=== PATIENT | female | born 1950 | race Caucasian/White ===

== ENCOUNTER 2020-06-05 13:54 | Outpatient (CLI) | payer MEDICARE, SELFPAY ==
--- NOTE | ~2020-06-05 | DEXA_ITS ---
Bone Density Report Name: Annette Schmitz Age: 70 Sex: Female Ethnicity: White Date of : 1950 Indication: osteopenia; height loss; Referring Provider: VERNON BAUTISTA Study: Bone densitometry was performed. Exam Date: June 05, 2020 Accession number: [id number] Bone Density: Region BMD T-score Z-score Classification AP Spine (L1-L4) 0.916 -1.2 0.9 Osteopenia Femoral Neck (Left) 0.733 -1.0 0.8 Normal Total Hip (Left) 0.887 -0.5 1.1 Normal Total Hip Bilateral Avg 0.888 -0.5 1.1 Normal Femoral Neck (Right) 0.694 -1.4 0.4 Osteopenia Total Hip (Right) 0.888 -0.4 1.1 Normal World Health Organization criteria for BMD impression classify patients as: Normal (T-score at or above -1.0), Osteopenia (T-score between -1.0 and -2.5), or Osteoporosis (T-score at or below -2.5). 10-year Fracture Risk(1): Major Osteoporotic Fracture 9.6% Hip Fracture 1.3% Reported Risk Factors: [place] (), Neck BMD=0.694, BMI=28.3 (1) FRAX(R) Version 3.08. Fracture probability calculated for an untreated patient. Fracture probability may be lower if the patient has received treatment. Previous Exams: Region Exam Age BMD T-score BMD Change BMD Change Date g/cm2 vs Baseline vs Previous AP Spine(L1-L4) 06/05/2020 70 0.916 -1.2 0.012(1.3%) 0.005(0.6%) 12/31/2016 66 0.911 -1.2 0.007(0.8%) 0.007(0.8%) 08/16/2014 64 0.904 -1.3 Total Hip(Left) 06/05/2020 70 0.887 -0.5 -0.044(-4.7%)* 0.002(0.3%) 12/31/2016 66 0.884 -0.5 -0.046(-5.0%)* -0.046(-5.0%)* 08/16/2014 64 0.930 -0.1 Total Hip(Right) 06/05/2020 70 0.888 -0.4 -0.043(-4.6%)* -0.018(-2.0%) 12/31/2016 66 0.906 -0.3 -0.026(-2.7%) -0.026(-2.7%) 08/16/2014 64 0.932 -0.1 *Denotes significance at 95% confidence level, LSC for AP Spine = 0.022 g/cm2, LSC for Total Hip = 0.027 g/cm2 Clinical Information Provided by Patient: Has used the following medications: Vitamin D Patient maximum height was 62.5 Menopause Age: 50 Does not regularly consume dairy products Drinks caffeinated beverages Onset of menses at age 12 Number of children 2 Impression: The patient has low bone mass, based on the Right Femoral Neck T-score. The patient has an estimated ten-year risk of hip fracture of 1.3% and an estimated ten-year risk of major fracture of 9.6%, based on the WHO FRAX algorithm. No significant bone loss was observed. Discussion: BONE DENSITY IS LO
== END 2020-06-05 13:55 | disposition home or self-care (01) ==
LOC: ANHIMG 13:57
PROVIDERS: PCP Family Medicine; Visit Provider Physician Assistant
DX: M85.851 Other specified disorders of bone density and structure, right thigh (principal); M85.88 Other specified disorders of bone density and structure, other site
CPT/HCPCS: 77080

== ENCOUNTER 2021-05-03 07:40 | Outpatient (CLI) | payer MEDICARE, SELFPAY ==
--- NOTE | ~2021-05-03 | MM_ITS ---
EXAMINATION: MM screening fausto BI w amanda HISTORY: Screening TECHNIQUE: Craniocaudal and mediolateral oblique 3-D tomosynthesis images were obtained and synthetic 2-D images were generated. CAD analysis was submitted and interpreted. COMPARISON: Comparison to multiple prior studies sequentially, with oldest reviewed study dated 04/19. BREAST PARENCHYMAL COMPOSITION: There are scattered areas of fibroglandular density. FINDINGS: There are extensive bilateral benign bilateral secretory calcifications. There are small de veloping masses in the lower inner quadrant of the right breast. The left breast is stable without ev idence for malignancy. IMPRESSION: 1. Small developing right breast masses, lower inner quadrant. 2. Additional mammographic views and possible breast ultrasound are recommended. BI-RADS Category 0: Incomplete: Needs additional imaging evaluation. Reviewed, dictated and finalized at location A. IMPRESSION: 1. Small developing right breast masses, lower inner quadrant. 2. Additional mammographic views and possible breast ultrasound are recommended . BI-RADS Category 0: Incomplete: Needs additional imaging evaluation.
== END 2021-05-03 07:41 | disposition home or self-care (01) ==
LOC: ANHIMG 07:43
PROVIDERS: PCP Family Medicine; Visit Provider Family Medicine
DX: Z12.31 Encounter for screening mammogram for malignant neoplasm of breast (principal); R92.8 Other abnormal and inconclusive findings on diagnostic imaging of breast
CPT/HCPCS: 77063; 77067

== ENCOUNTER 2021-05-30 12:53 | Outpatient (CLI) | payer MEDICARE, SELFPAY ==
--- NOTE | ~2021-05-30 | MMUS_ITS ---
EXAMINATION: MM diagnostic fausto RT w amanda, US breast RT limited HISTORY: Follow-up right breast asymmetries TECHNIQUE: Additional 3-D tomosynthesis images of the right breast were performed and synthetic 2-D i mages were generated. CAD analysis was submitted and interpreted. High resolution Limited right breas t ultrasound was performed. COMPARISON: Comparison to multiple prior studies sequentially, with oldest reviewed study dated 11/2018. BREAST PARENCHYMAL COMPOSITION: Breast composed of scattered areas of fibroglandular density. FINDINGS: MAMMOGRAPHIC FINDINGS: There are extensive benign secretory calcifications. There are nodular densities predominantly center ed in the lower inner quadrant of the right breast which are new compared with prior study. ULTRASOUND: Limited right breast ultrasound: There are multiple cysts of the right breast including a cluster of microcysts at 3:00, 3 cm from the nipple. No suspicious masses to suggest malignancy. IMPRESSION: 1. No evidence for malignancy in the right breast. Benign findings. 2. Routine yearly screening mammogram and regular clinical breast examination are recommended. BI-RADS Category 2: Benign finding(s). Reviewed, dictated and finalized at location A. IMPRESSION: 1. No evidence for malignancy in the right breast. Benign findings. 2. Routine yearly screening mammogram and regular clinical breast examination a re recommended. BI-RADS Category 2: Benign finding(s).
== END 2021-05-30 12:54 | disposition home or self-care (01) ==
PROVIDERS: PCP Family Medicine; Visit Provider Physician Assistant
DX: N63.10 Unspecified lump in the right breast, unspecified quadrant (principal); N60.01 Solitary cyst of right breast
CPT/HCPCS: 76642; 77061; 77065; G0279

== ENCOUNTER 2021-06-11 01:00 | Day surgery (SDC) | payer MEDICARE, SELFPAY ==
[2021-05-31 13:11] VITALS: BMI 26.2
[2021-06-11 06:44] VITALS: BP 149/72; PULSE 90; RESP 18; TEMP 36.8; O2SAT 97
[2021-06-11] MEDS: LACTATED RINGERS 1,000 ML 150 ML IV CONT (06:49)
[2021-06-11 06:55] LABS: Glucose Point of Care 158 mg/dl (65-105)
--- NOTE | 2021-06-11 07:23 | WPDANESEPPF ---
Anes - Initial Pre Proc Eval Procedure: Operation Date: 06/11/21 08:00 Proposed Procedures p Esophagogastroduodenoscopy - Collins Scherer MD Date/Time: 06/11/21 07:23 Surgeon: Collins Scherer MD Pre Op Diagnosis: GERD Patient Data Age: 71 Gender: F Height: 1.6 m Weight: 67 kg Last Vital Signs Temp 98.2 F 06/11/21 06:44 Pulse 90 06/11/21 06:44 Resp 18 06/11/21 06:44 BP 149/72 H 06/11/21 06:44 Pulse Ox 97 06/11/21 06:44 Allergies Allergy/AdvReac Type Severity Reaction Status Date / Time morphine Allergy Severe Confusion Verified 06/11/21 06:43 Home Medications Medication Instructions Recorded Confirmed Type cholecalciferol (vitamin D3) 50 2,000 unit PO DAILY 08/23/19 06/11/21 History mcg (2,000 unit) tablet meclizine 12.5 mg tablet 12.5 mg PO BID 08/23/19 06/11/21 History esomeprazole magnesium 40 mg 40 mg PO QAM #90 cap 09/05/20 06/11/21 Rx capsule,delayed release fenofibrate micronized 130 mg See Rx Instructions .ROUTE 11/01/20 06/11/21 Rx capsule .COMPLEX #90 each pravastatin 20 mg tablet See Rx Instructions .ROUTE 11/01/20 06/11/21 Rx .COMPLEX #90 each dulaglutide 1.5 mg/0.5 mL 1.5 mg SUB-Q WEEKLY #2 ml 02/19/21 06/11/21 Rx subcutaneous pen injector losartan 100 1 tablet PO DAILY #90 tablet 04/16/21 06/11/21 Rx mg-hydrochlorothiazide 12.5 mg tablet Laboratory Tests 06/11/21 06:48 POC Capillary Glucose 158 mg/dl H mg/dl (65-105) Patient hx anesthesia problems: none Family hx anesthesia problems: none PMFSH Past Medical History Medical History (Updated 06/11/21 @ 07:23 by Alvaro Guevara MD) Essential hypertension GERD without esophagitis Hypercholesterolemia Type 2 diabetes mellitus without complication, without long-term current use of insulin Social History Social History (Updated 05/17/21 @ 10:35 by Destiny Huber) Smoking status: Never smoker Second hand tobacco smoke exposure: No Alcohol intake: current Drinks per week: 1 Alcohol use details: socially Substance use: never Substance use type: does not use Living arrangements: with family Additional living arrangements comments: lives with spouse Gender identity (if verbalized by the patient): Female Sexual Orientation (if Verbalized by the Patient): Straight or Heterosexual Spiritual care concerns: No Anes - Eval Final PreProcedure Day of Procedure 06/11/21 07:23 Patient weight: normal Heart: regular rate and rhythm Lungs: clear to auscultation Airway: Mallampati scale class II Neurological: alert and oriented Last oral intake: >/= 8 hours ASA classification: III Emergent: no Anesthetic plan: proceed Anesthesia type and monitoring: general GIVS and standard monitoring Informed Consent: The patient's anesthetic plan and its attendant risks and benefits were discussed with the patient/family/POA. Questions were solicited and answers provided to the satisfaction of the patient/family/POA.
--- NOTE | 2021-06-11 07:50 | PM.HPGS ---
History of Present Illness History of Present Illness Consent: Risks, benefits, and alternatives have been discussed and questions answered. Patient agrees to proceed with procedure. Chief complaint: GERD Narrative: Annette Schmitz is a 71 year old female with gerd for years on ppi but sometimes breakthrough symptoms, never had egd Review of Systems Constitutional: Constitutional: Denies headache(s) and Denies weakness Eyes: Eyes: Denies blurry vision ENT: Reports Normal hearing present, Denies headache(s) and Denies neck pain Cardiovascular: Cardiovascular: Denies chest pain and Denies dyspnea Respiratory: Respiratory: Denies dyspnea Gastrointestinal: Gastrointestinal: Reports no additional gastrointestinal complaints Genitourinary: Genitourinary: Denies dysuria Musculoskeletal: Musculoskeletal: Denies neck pain Integumentary/Breasts: Skin/Breast: Denies dry skin Neurologic: Reports Normal hearing present, Denies headache(s) and Denies weakness Psychiatric: Psychiatric: Denies anxiety Endocrine: Endocrine: Denies change in body appearance Hematologic/Lymphatic: Hematologic/Lymphatic: Denies easy bleeding Allergic/Immunologic: Allergic/Immunologic: Denies urticaria PMFSH Past Medical History Medical History (Updated 06/11/21 @ 07:50 by Collins Scherer MD) Essential hypertension GERD without esophagitis Hypercholesterolemia Type 2 diabetes mellitus without complication, without long-term current use of insulin Social History Social History (Updated 05/17/21 @ 10:35 by Destiny Huber) Smoking status: Never smoker Second hand tobacco smoke exposure: No Alcohol intake: current Drinks per week: 1 Alcohol use details: socially Substance use: never Substance use type: does not use Living arrangements: with family Additional living arrangements comments: lives with spouse Gender identity (if verbalized by the patient): Female Sexual Orientation (if Verbalized by the Patient): Straight or Heterosexual Spiritual care concerns: No Meds Home Medications and Allergies Home Medications Medication Instructions Recorded Confirmed Type cholecalciferol (vitamin D3) 50 2,000 unit PO DAILY 08/23/19 06/11/21 History mcg (2,000 unit) tablet meclizine 12.5 mg tablet 12.5 mg PO BID 08/23/19 06/11/21 History esomeprazole magnesium 40 mg 40 mg PO QAM #90 cap 09/05/20 06/11/21 Rx capsule,delayed release fenofibrate micronized 130 mg See Rx Instructions .ROUTE 11/01/20 06/11/21 Rx capsule .COMPLEX #90 each pravastatin 20 mg tablet See Rx Instructions .ROUTE 11/01/20 06/11/21 Rx .COMPLEX #90 each dulaglutide 1.5 mg/0.5 mL 1.5 mg SUB-Q WEEKLY #2 ml 02/19/21 06/11/21 Rx subcutaneous pen injector losartan 100 1 tablet PO DAILY #90 tablet 04/16/21 06/11/21 Rx mg-hydrochlorothiazide 12.5 mg tablet Allergies Allergy/AdvReac Type Severity Reaction Status Date / Time morphine Allergy Severe Confusion Verified 06/11/21 06:43 Vital Signs Vital Signs - 24 hr 06/11/21 06:44 Temperature 98.2 F Pulse Rate 90 Respiratory Rate 18 Blood Pressure 149/72 H Pulse Oximetry 97 Exam Const: General: comfortable and no acute distress HENMT: General nose exam: Normal nares present Eyes: General: appearance normal, both eyes and all related structures Neck: Neck: no JVD Resp: Auscultation: clear to auscultation bilaterally Cardio: Rate: regular rate Rhythm: regular rhythm GI: Inspection: non-distended GI Palp: Yes Soft to palpation Skin: General skin exam: normal color Neuro: General: gait normal Speech: normal speech Extrem: General: normal to inspection Psych: Mental Status: mental status grossly normal Assessment and Plan Assessment and plan (1) GERD without esophagitis: Code(s): K21.9 - Gastro-esophageal reflux disease without esophagitis Status: Acute Assessment and Plan: egd with bx already o
[2021-06-11 08:03] VITALS: BP 99/54; PULSE 84; RESP 24; O2SAT 96
[2021-06-11 08:13] VITALS: BP 115/64; PULSE 80; RESP 20; O2SAT 95
[2021-06-11 08:23] VITALS: BP 129/68; PULSE 81; RESP 14; O2SAT 98
== END 2021-06-11 08:36 | disposition home or self-care (01) ==
PROVIDERS: PCP Family Medicine; Visit Provider Internal Medicine Gastroenterology
PROC: 0DJ08ZZ Inspection of Upper Intestinal Tract, Via Natural or Artificial Opening Endoscopic (ICD-10-PCS; CPT 43235; principal; 2021-06-11 08:00)
DX: K21.00 Gastro-esophageal reflux disease with esophagitis, without bleeding (principal); K44.9 Diaphragmatic hernia without obstruction or gangrene; K29.70 Gastritis, unspecified, without bleeding; I10 Essential (primary) hypertension; E11.9 Type 2 diabetes mellitus without complications; E78.00 Pure hypercholesterolemia, unspecified
CPT/HCPCS: 43239; 82948; 88305; J2704; J7120

== ENCOUNTER 2021-12-12 08:00 | Outpatient (CLI) | payer MEDICARE, SELFPAY ==
--- NOTE | ~2021-12-12 | US_ITS ---
EXAMINATION: US abdomen complete DATE: 12/12/2021 09:02 INDICATION: Other secondary thrombocytopenia. TECHNIQUE: Multiple grayscale and Doppler ultrasound images of the abdomen were obtained. COMPARISON: Abdomen ultrasound 09/27/2016 FINDINGS: Abdominal aorta is normal in caliber. The visualized portions of the head, body, and tail o f the pancreas are normal. Inferior vena cava is normal. There is diffuse hepatic steatosis. The gall bladder is normal in size and contains gallstones. No gallbladder wall thickening. There was no sonog raphic Marlow sign. The common duct is normal and measures 4 mm. The kidneys are normal in size. Ther e is a 6 mm cyst in left kidney. There is mild splenomegaly measuring 13.9 cm. IMPRESSION: 1. Mild splenomegaly. 2. Diffuse hepatic steatosis. 3. Cholelithiasis. No evidence of acute cholecystitis. Reviewed, dictated and finalized at location A.
== END 2021-12-12 08:01 | disposition home or self-care (01) ==
LOC: ANHIMG 08:05
PROVIDERS: PCP Family Medicine; Visit Provider Internal Medicine Hematology & Oncology
DX: D69.59 Other secondary thrombocytopenia (principal); K76.0 Fatty (change of) liver, not elsewhere classified; K80.20 Calculus of gallbladder without cholecystitis without obstruction; R16.1 Splenomegaly, not elsewhere classified
CPT/HCPCS: 76700

== ENCOUNTER → 2022-01-31 02:12 | Outpatient (CLI) | payer MEDICARE, SELFPAY ==
[2022-01-31 15:55] LABS: SARS-CoV-2 RNA PCR Positive
== END ==
PROVIDERS: PCP Family Medicine; Visit Provider Family Medicine
DX: U07.1 COVID-19 (principal)
CPT/HCPCS: C9803; U0003; U0005

== ENCOUNTER 2022-03-01 18:48 | Emergency (ER) | payer MEDICARE, SELFPAY ==
--- NOTE | ~2022-03-01 | XR_ITS ---
EXAMINATION: XR chest 2V Exam Date/Time: 03/01/2022 19:37 CDT HISTORY: ongoing cough Comparison: 05/25/2012. RESULT: Lines, tubes, and devices: None. Lungs and pleura: Clear. Cardiomediastinal silhouette: Stable cardiomediastinal silhouette. Other: No acute osseous or upper abdominal finding. IMPRESSION: No acute cardiopulmonary process. Reviewed, dictated and finalized at location K.
[2022-03-01 18:49] VITALS: BP 114/95; PULSE 98; RESP 20; TEMP 36.2; O2SAT 98
--- NOTE | 2022-03-01 19:29 | ED.EAR ---
HPI - Ear Problem General Chief complaint: Ear Stated complaint: Cough, Ear pain Time Seen by Provider: 03/01/22 19:08 Source: patient Mode of arrival: ambulatory Limitations: no limitations History of Present Illness HPI Narrative: This is a 72-year-old female that presents to the emergency department for otalgia noted today. Reports over the last week she has had congestion and a dry cough. Today she noted that her right ear was hurting. Denies fever, drainage, or shortness of breath. Related Data Home Medications Medication Instructions Recorded Confirmed cholecalciferol (vitamin D3) 50 2,000 unit PO DAILY 08/23/19 01/14/22 mcg (2,000 unit) tablet meclizine 12.5 mg tablet 12.5 mg PO BID 08/23/19 01/14/22 Allergies Allergy/AdvReac Type Severity Reaction Status Date / Time morphine Allergy Severe Confusion Verified 03/01/22 19:33 Review of Systems Review of Systems: CONSTITUTIONAL: Denies fever, ENT: Reports otalgia. CARDIOVASCULAR: Denies chest pain RESPIRATORY: Reports cough. Denies dyspnea. All systems reviewed & are unremarkable except as noted in HPI and below PMFSH Past Medical History Medical History Essential hypertension GERD without esophagitis Hypercholesterolemia Type 2 diabetes mellitus without complication, without long-term current use of insulin Social History Social History Second hand tobacco smoke exposure: No Alcohol intake: current Drinks per week: 1 Alcohol use details: socially Substance use: never Substance use type: does not use Additional living arrangements comments: lives with spouse Gender identity (if verbalized by the patient): Female Sexual Orientation (if Verbalized by the Patient): Straight or Heterosexual Spiritual care concerns: No Exam Narrative: GENERAL: Well-appearing, well-nourished, and in no acute distress. HEAD: Normocephalic, atraumatic. EYES: EOMI. ENT: Nares clear, no rhinorrhea or epistaxis. Mucous membranes moist. Oropharynx without tonsillar hypertrophy exudate or other lesions. Left TM pearly najera non-bulging. Right TM is bulging and erythematous NECK: Supple. No adenopathy or masses. CHEST: Clear to auscultation. No respiratory distress. No wheezes rales or rhonchi HEART: Regular rate and rhythm. No murmur heard. Normal peripheral pulses. EXTREMITIES: Normal range of motion. No edema. SKIN: Warm, dry, no rash. NEURO: No focal deficits. Alert and oriented x3. PSYCH: Normal mood and affect Course Vital Signs Vital signs: Vital Signs Temperature 97.2 F L 03/01/22 18:49 Pulse Rate 98 03/01/22 18:49 Respiratory Rate 20 03/01/22 18:49 Blood Pressure 114/95 H 03/01/22 18:49 Pulse Oximetry 98 03/01/22 18:49 Temperature 97.2 F L 03/01/22 18:49 Pulse Rate 98 03/01/22 18:49 Respiratory Rate 20 03/01/22 18:49 Blood Pressure 114/95 H 03/01/22 18:49 Pulse Oximetry 98 03/01/22 18:49 Medical Decision Making MDM Narrative Medical decision making narrative: Patient presents to the emergency department for ear pain today after a recent upper respiratory infection. Patient is afebrile and nontoxic-appearing. Oxygen saturation is normal on room air. Lungs are clear on exam. Chest x-ray without acute cardiopulmonary abnormality. Right ear exam is consistent with otitis media. Patient will be started on oral antibiotics. She is to follow-up with her primary care doctor. She was given warnings to return to ER Vital Signs Vital Signs: Vital Signs Temperature 97.2 F L 03/01/22 18:49 Pulse Rate 98 03/01/22 18:49 Respiratory Rate 20 03/01/22 18:49 Blood Pressure 114/95 H 03/01/22 18:49 Pulse Oximetry 98 03/01/22 18:49 Temperature 97.2 F L 03/01/22 18:49 Pulse Rate 98 03/01/22 18:49 Respiratory Rate 20 03/01/22 18:49 Blood Pressure 114/95 H 03/01/22 18:49 Pul
--- NOTE | 2022-03-01 19:39 | PC.NURSE ---
Patient taken to xray via w/c.
[2022-03-01 20:45] VITALS: BP 106/54; PULSE 99; RESP 20; TEMP 37.5; O2SAT 97
[2022-03-01] MEDS: AMOXICILLIN 500 MG CAPSULE PO (20:54)
== END 2022-03-01 20:58 | disposition home or self-care (01) ==
PROVIDERS: Emergency Provider Emergency Medicine; PCP Family Medicine
DX: H66.91 Otitis media, unspecified, right ear (principal); I10 Essential (primary) hypertension; E78.00 Pure hypercholesterolemia, unspecified; E11.9 Type 2 diabetes mellitus without complications; K21.9 Gastro-esophageal reflux disease without esophagitis; Z79.899 Other long term (current) drug therapy
CPT/HCPCS: 71046; 99283; A9270

== ENCOUNTER 2022-08-29 08:51 | Outpatient (CLI) | payer MEDICARE, SELFPAY ==
--- NOTE | ~2022-08-29 | MM_ITS ---
EXAMINATION: MM screening fausto BI w amanda HISTORY: Screening mammogram TECHNIQUE: Craniocaudal and mediolateral oblique 3-D tomosynthesis images were obtained and synthetic 2-D images were generated. CAD analysis was submitted and interpreted. COMPARISON: 05/30/2021, 05/03/2021, 04/13/2018 BREAST PARENCHYMAL COMPOSITION: There are scattered areas of fibroglandular density. FINDINGS: Scattered benign-appearing calcifications are present. No suspicious mass, calcification, o r architectural distortion are identified in either breast to suggest malignancy. There has been no s uspicious interval change. IMPRESSION: 1. No mammographic evidence of malignancy. 2. Recommend routine screening mammography in one year. BI-RADS Category 2: Benign finding(s). Reviewed, dictated and finalized at location A. WASHER
== END 2022-08-29 08:52 | disposition home or self-care (01) ==
LOC: ANHIMG 08:52
PROVIDERS: PCP Family Medicine; Visit Provider Physician Assistant
DX: Z12.31 Encounter for screening mammogram for malignant neoplasm of breast (principal)
CPT/HCPCS: 77063; 77067

== ENCOUNTER 2022-11-12 00:59 | Day surgery (SDC) | payer MEDICARE, SELFPAY ==
[2022-10-29 12:12] VITALS: BMI 26.6
[2022-11-12 06:47] VITALS: BP 145/62; PULSE 83; RESP 16; TEMP 36.2; O2SAT 99
[2022-11-12] MEDS: LACTATED RINGERS 1,000 ML 150 ML IV CONT (06:59)
[2022-11-12 07:02] LABS: Glucose Point of Care 119 mg/dl (65-105)
--- NOTE | 2022-11-12 07:51 | PM.HPGS ---
History of Present Illness History of Present Illness Consent: Risks, benefits, and alternatives have been discussed and questions answered. Patient agrees to proceed with procedure. Chief complaint: neoplasm screening, hemorrhoids Narrative: Annette Schmitz is a 72 year old female with last colonoscopy 2017 had polyps and also history of hemorrhoids Review of Systems Constitutional: Constitutional: Denies headache(s) and Denies weakness Eyes: Eyes: Denies blurry vision ENT: Reports Normal hearing present, Denies headache(s) and Denies neck pain Cardiovascular: Cardiovascular: Denies chest pain and Denies dyspnea Respiratory: Respiratory: Denies dyspnea Gastrointestinal: Gastrointestinal: Reports no additional gastrointestinal complaints Genitourinary: Genitourinary: Denies dysuria Musculoskeletal: Musculoskeletal: Denies neck pain Integumentary/Breasts: Skin/Breast: Denies dry skin Neurologic: Reports Normal hearing present, Denies headache(s) and Denies weakness Psychiatric: Psychiatric: Denies anxiety Endocrine: Endocrine: Denies change in body appearance Hematologic/Lymphatic: Hematologic/Lymphatic: Denies easy bleeding Allergic/Immunologic: Allergic/Immunologic: Denies urticaria PMFSH Past Medical History Medical History (Updated 11/12/22 @ 07:52 by Collins Scherer MD) Adenomatous colon polyp Essential hypertension GERD without esophagitis Hemorrhoid Hypercholesterolemia Type 2 diabetes mellitus without complication, without long-term current use of insulin Social History Social History Smoking status: Former smoker Second hand tobacco smoke exposure: No Alcohol intake: current Drinks per week: 2 Alcohol use details: socially Substance use: never Substance use type: does not use Living arrangements: with family Additional living arrangements comments: lives with spouse Occupation/Education: retired Gender identity (if verbalized by the patient): Female Sexual Orientation (if Verbalized by the Patient): Straight or Heterosexual Spiritual care concerns: No Meds Home Medications and Allergies Home Medications Medication Instructions Recorded Confirmed Type cholecalciferol (vitamin D3) 50 2,000 unit PO DAILY 08/23/19 11/12/22 History mcg (2,000 unit) tablet meclizine 12.5 mg tablet 12.5 mg PO BID PRN Vertigo 08/23/19 11/12/22 History losartan 100 1 tablet PO DAILY #90 tabs 07/30/22 11/12/22 Rx mg-hydrochlorothiazide 12.5 mg tablet fenofibrate micronized 130 mg 130 mg PO DAILY 10/29/22 11/12/22 History capsule pravastatin 20 mg tablet 20 mg PO DAILY 10/29/22 11/12/22 History dulaglutide 1.5 mg/0.5 mL 1.5 mg (0.5 mL) subcut WEEKLY #2 mL 11/10/22 11/12/22 Rx subcutaneous pen injector (Trulicity) Allergies Allergy/AdvReac Type Severity Reaction Status Date / Time morphine Allergy Severe Confusion Verified 11/12/22 06:44 Vital Signs Vital Signs - 24 hr 11/12/22 06:47 Temperature 97.1 F L Pulse Rate 83 Respiratory Rate 16 Blood Pressure 145/62 H Pulse Oximetry 99 Oxygen Delivery Room Air Exam Const: General: comfortable and no acute distress HENMT: Face/Nose/Sinus: Normal nares present Eyes: General: appearance normal, both eyes and all related structures Neck: Neck: no JVD Resp: Auscultation: clear to auscultation bilaterally Cardio: Rate: regular rate Rhythm: regular rhythm GI: Inspection: non-distended GI Palp: Yes Soft to palpation Skin: General skin exam: normal color Neuro: General: gait normal Speech: normal speech Extrem: General: normal to inspection Psych: Mental Status: mental status grossly normal Assessment and Plan Assessment and plan (1) Adenomatous colon polyp: Code(s): D12.6 - Benign neoplasm of colon, unspecified Status: Acute Assessment and Plan: colonoscopy (2) Hemorrhoid: Code(s
[2022-11-12 08:10] VITALS: BP 94/57; PULSE 92; RESP 21; O2SAT 96
--- NOTE | 2022-11-12 08:11 | W.PM.PROC2 ---
Procedure Note - Detailed Date of Procedure 11/12/22 Pre-op Diagnosis hemorrhoids Post-op Diagnosis Same Procedure Performed IRC of internal hemorrhoids Surgeon Collins Scherer MD Anesthesia MAC (patient already had anesthesia because of colonoscopy) Description of Procedure found grade II internal hemorrhoids with anoscope, no fissure, no lesions. Then advanced IRC probe and hemorrhoids treated at 1.5 seconds x6
--- NOTE | 2022-11-12 08:11 | WPDANESEPPF ---
Anes - Initial Pre Proc Eval Procedure: Operation Date: 11/12/22 08:00 Proposed Procedures p Screening Colonoscopy - Collins Scherer MD s [facility] Hemorrhoid Treatment - Collins Scherer MD Date/Time: 11/12/22 08:11 Surgeon: Collins Scherer MD Pre Op Diagnosis: neoplasm screening, hemorrhoids Patient Data Age: 72 Gender: F Height: 1.57 m Weight: 61.4 kg Last Vital Signs Temp 97.1 F L 11/12/22 06:47 Pulse 83 11/12/22 06:47 Resp 16 11/12/22 06:47 BP 145/62 H 11/12/22 06:47 Pulse Ox 99 11/12/22 06:47 O2 Del Method Room Air 11/12/22 06:47 Allergies Allergy/AdvReac Type Severity Reaction Status Date / Time morphine Allergy Severe Confusion Verified 11/12/22 06:44 Home Medications Medication Instructions Recorded Confirmed Type cholecalciferol (vitamin D3) 50 2,000 unit PO DAILY 08/23/19 11/12/22 History mcg (2,000 unit) tablet meclizine 12.5 mg tablet 12.5 mg PO BID PRN Vertigo 08/23/19 11/12/22 History losartan 100 1 tablet PO DAILY #90 tabs 07/30/22 11/12/22 Rx mg-hydrochlorothiazide 12.5 mg tablet fenofibrate micronized 130 mg 130 mg PO DAILY 10/29/22 11/12/22 History capsule pravastatin 20 mg tablet 20 mg PO DAILY 10/29/22 11/12/22 History dulaglutide 1.5 mg/0.5 mL 1.5 mg (0.5 mL) subcut WEEKLY #2 mL 11/10/22 11/12/22 Rx subcutaneous pen injector (Trulicity) Laboratory Tests 11/12/22 06:57 POC Capillary Glucose 119 mg/dl H mg/dl (65-105) Patient hx anesthesia problems: none Family hx anesthesia problems: none Results Review: All pre-operative results and documents have been reviewed as part of the pre-operative evaluation. [facility] Past Medical History Medical History (Updated 11/12/22 @ 07:52 by Collins Scherer MD) Adenomatous colon polyp Essential hypertension GERD without esophagitis Hemorrhoid Hypercholesterolemia Type 2 diabetes mellitus without complication, without long-term current use of insulin Social History Social History Smoking status: Former smoker Second hand tobacco smoke exposure: No Alcohol intake: current Drinks per week: 2 Alcohol use details: socially Substance use: never Substance use type: does not use Living arrangements: with family Additional living arrangements comments: lives with spouse Occupation/Education: retired Gender identity (if verbalized by the patient): Female Sexual Orientation (if Verbalized by the Patient): Straight or Heterosexual Spiritual care concerns: No Anes - Eval Final PreProcedure Day of Procedure 11/12/22 08:11 Patient weight: normal Heart: regular rate and rhythm Lungs: clear to auscultation Airway: Mallampati scale class II Neurological: alert and oriented Last oral intake: >/= 8 hours ASA classification: III Emergent: no Anesthetic plan: proceed Anesthesia type and monitoring: general GIVS and standard monitoring Results Review: All pre-operative results and documents have been reviewed as part of the pre-operative evaluation. Informed Consent: The patient's anesthetic plan and its attendant risks and benefits were discussed with the patient/family/POA. Questions were solicited and answers provided to the satisfaction of the patient/family/POA.
[2022-11-12 08:20] VITALS: BP 91/50; PULSE 87; RESP 15; O2SAT 94
[2022-11-12 08:30] VITALS: BP 109/60; PULSE 80; RESP 18; O2SAT 97
== END 2022-11-12 08:40 | disposition home or self-care (01) ==
PROVIDERS: PCP Family Medicine; Visit Provider Internal Medicine Gastroenterology
PROC: 0DJD8ZZ Inspection of Lower Intestinal Tract, Via Natural or Artificial Opening Endoscopic (ICD-10-PCS; CPT 45378; principal; 2022-11-12 08:00)
PROC: (CPT 46930; 2022-11-12 08:00)
DX: Z12.11 Encounter for screening for malignant neoplasm of colon (principal); D12.4 Benign neoplasm of descending colon; K63.5 Polyp of colon; K64.1 Second degree hemorrhoids; K57.30 Diverticulosis of large intestine without perforation or abscess without bleeding; I10 Essential (primary) hypertension; E11.9 Type 2 diabetes mellitus without complications; E78.00 Pure hypercholesterolemia, unspecified; K21.9 Gastro-esophageal reflux disease without esophagitis; Z79.899 Other long term (current) drug therapy; Z87.891 Personal history of nicotine dependence
CPT/HCPCS: 46930; 45385; 82948; 88305; J2704; J7120

== ENCOUNTER 2023-07-07 09:38 | Outpatient (CLI) | payer MEDICARE, SELFPAY ==
--- NOTE | 2023-07-23 21:32 | WPDSLEEPSTUD ---
Sleep Study Date of Study: 07/07/23 Ordering Provider: Sanjeev Ku DDS, [facility] Val[facility] MD Interpreting Physician: Anais Valderrama MD Sleep Study Type: Polysomnogram Height: 1.6 m Weight: 58.967 kg Body Mass Index: 23.0 Neck Circumference (inches): 13 [place]: 11 Reason for Sleep Study Hypersomnolence, known TRUMAN; she is having a polysomnogram with titration of an oral device * 12/20/08 split night =? AHI 36.9 desaturation to 83%; severe TRUMAN; she had a BMI 27.4 / 150 lb at the time, same as now. Sleep History Annette Schmitz is a 73-year-old woman with obstructive sleep apnea, here for a titration using the AYAZ oral device. She was referred to me by her dentist, Dr Ku. She did not tolerate CPAP in the past, is using an AYAZ oral device since September 2022. Using this device, she never awakens from sleep short of breath. She frequently wakes at night with heartburn, belching or coughing.??She frequently snores, occasionally snores loudly enough that others complain, but not when using the oral device. She occasionally has trouble sleeping when she has a cold. She never wakes up gasping for breath during the night. She never has breathing problems at night observed by others. She never sweats excessively at night. She occasionally notices her heart pounding or beating irregularly during the night. She occasionally falls asleep during the day. She never falls asleep involuntarily, never falls asleep while driving. She rarely experiences loss of muscle tone with strong emotion. She never feels paralyzed on waking or falling asleep. She occasionally experiences vivid dreams upon waking or falling asleep. She never feels afraid of going to sleep. She rarely has nightmares. She occasionally recalls her dreams. She frequently has thoughts racing through her mind. She occasionally feels sad or depressed. She frequently feels anxiety. She never notices parts of her body jerk. She never kicks during the night. She occasionally feels crawling or aching feelings in her legs. She occasionally feels leg pain at night. She rarely has morning jaw pain, and rarely grinds her teeth at night. She rarely feels bothered by pain during the day, rarely awakened by pain during the night. She never wakes up feeling stiff in the morning, rarely wakes feeling sore or achy in the morning. She rarely awakens with pain in her neck, spine, or joints. Normal bedtime is between 11:00 p.m. and 12:00 midnight, falling asleep within 30-40 minutes. She wakes up once or twice during the night, most nights does not wake at all. If she wakes at night, she thinks about what she will do the next day when she wakes at night. She reports getting 6-7 hours of sleep per night. Her wake time is 7:30 a.m.. She occasionally takes naps, and a short nap may be refreshing. She feels refreshed on waking. Habits:??Tobacco:never Caffeine:1 cup of coffee a day, Coke or tea with meals. Alcohol:once a week, a social drink Recreational substances: none PMFSH Past Medical History Medical History Adenomatous colon polyp Essential hypertension GERD without esophagitis Hemorrhoid Hypercholesterolemia Obstructive sleep apnea Type 2 diabetes mellitus without complication, without long-term current use of insulin Social History Social History Smoking status: Former smoker Second hand tobacco smoke exposure: No Alcohol intake: current Drinks per week: 2 Alcohol use details: socially Substance use: never Substance use type: does not use Living arrangements: with family Additional living arrangements comments: lives with spouse Occupation/Education: retired Gender identity (if verbalized by the patient): Female Sexual Orientation (if Verbalized by the Patient): Straight or Heterosexual Spiritual care concerns: No Medications Jose
[2023-07-23 22:52] VITALS: BMI 23.0
== END 2023-07-08 07:47 | disposition home or self-care (01) ==
LOC: ANHCSM 09:39
PROVIDERS: PCP Family Medicine; Visit Provider Internal Medicine Critical Care Medicine
DX: G47.33 Obstructive sleep apnea (adult) (pediatric) (principal)
CPT/HCPCS: 95810

== ENCOUNTER → 2023-10-22 10:17 | Outpatient (CLI) | payer MEDICARE, SELFPAY ==
--- NOTE | ~2023-10-22 | MM_ITS ---
EXAMINATION: MM screening fausto BI w amanda HISTORY: Screening mammogram TECHNIQUE: Craniocaudal and mediolateral oblique 3-D tomosynthesis images were obtained and synthetic 2-D images were generated. CAD analysis was submitted and interpreted. COMPARISON: 08/29/2022, 05/30/2021, at 621 BREAST PARENCHYMAL COMPOSITION: There are scattered areas of fibroglandular density. FINDINGS: Scattered benign-appearing calcifications are present. No suspicious mass, calcification, o r architectural distortion are identified in either breast to suggest malignancy. There has been no s uspicious interval change. IMPRESSION: 1. No mammographic evidence of malignancy. 2. Recommend routine screening mammography in one year. BI-RADS Category 2: Benign finding(s). Reviewed, dictated and finalized at location A. LE APPLICATION TESTER
--- NOTE | ~2023-10-22 | DEXA_ITS ---
Bone Density Report Name: WAGNER DOMINIQUE Age: 73 Sex: Female Ethnicity: White Date of : 1950 Indication: postmenopausal; screening for osteoporosis; Referring Provider: RENÉ PAULINO Study: Bone densitometry was performed. Exam Date: October 22, 2023 Accession number: [id number] Bone Density: Region BMD T-score Z-score Classification AP Spine (L1-L4) 0.894 -1.4 0.9 Osteopenia Femoral Neck (Left) 0.748 -0.9 1.1 Normal Total Hip (Left) 0.843 -0.8 0.9 Normal Femoral Neck (Right) 0.682 -1.5 0.5 Osteopenia Total Hip (Right) 0.866 -0.6 1.1 Normal Total Hip Mean 0.855 -0.7 1.0 Normal World Health Organization criteria for BMD impression classify patients as: Normal (T-score at or above -1.0), Osteopenia (T-score between -1.0 and -2.5), or Osteoporosis (T-score at or below -2.5). 10-year Fracture Risk(1): Major Osteoporotic Fracture 11% Hip Fracture 2.0% Reported Risk Factors: [place] (), Neck BMD=0.682, BMI=24.3 (1) FRAX(R) Version 3.08. Fracture probability calculated for an untreated patient. Fracture probability may be lower if the patient has received treatment. Clinical Information Provided by Patient: Has used the following medications: Vitamin D Patient maximum height was 62.0 Menopause Age: 43 Does not regularly consume dairy products Drinks caffeinated beverages Onset of menses at age 15 Number of children 2 Impression: The patient has low bone mass, based on the Right Femoral Neck T-score. The patient has an estimated ten-year risk of hip fracture of 2% and an estimated ten-year risk of major fracture of 11%, based on the WHO FRAX algorithm. Discussion: BONE DENSITY IS LOW AT ONE OR MORE SKELETAL SITES. This patient's lowest T-score is low at one or more skeletal sites. It meets the World Health Organization's (WHO) criteria for ?low bone mass? (T-score between -1.0 and -2.5). The patient's 10-year risk of fracture as calculated by FRAX is less than the threshold where pharmacological therapy is recommended by the National Osteoporosis Foundation (NOF). However, all treatment decisions require clinical judgment and consideration of individual patient factors, including patient preferences, comorbidities, previous drug use, risk factors not captured in the FRAX model (e.g., frailty, falls, vitamin D deficiency, increased bone turnover, interval significant decline in bone density) and possible under or overestimation of fracture risk by FRAX. The patient should follow a healthful lifestyle (good nutrition with adequate calcium and vitamin D, and appropriate weight-bearing exercise). Follow-Up: Consider repeating this study in 2 to 3 years to reassess this patient's status, or sooner if there is some new clinical indication. Reported by: [facility] on 10/22/2023 11:22:00 A
== END ==
PROVIDERS: PCP Physician Assistant; Visit Provider Physician Assistant
DX: Z12.31 Encounter for screening mammogram for malignant neoplasm of breast (principal); Z78.0 Asymptomatic menopausal state; M85.88 Other specified disorders of bone density and structure, other site; M85.851 Other specified disorders of bone density and structure, right thigh
CPT/HCPCS: 77063; 77067; 77080

== ENCOUNTER 2024-02-08 14:37 | Outpatient (CLI) | payer MEDICARE, SELFPAY ==
--- NOTE | ~2024-02-08 | XR_ITS ---
EXAMINATION: XR chest 2V Exam Date/Time: 02/08/2024 14:50 CDT HISTORY: R05.9 - Cough, unspecified COUGH SINCE 02/03 Comparison: 03/01/2022. RESULT: Lines, tubes, and devices: Calcified gallstones project over the right upper quadrant. Lungs and pleura: Clear. Cardiomediastinal silhouette: Stable. Other: No acute osseous or upper abdominal finding. IMPRESSION: No acute cardiopulmonary process. Reviewed, dictated and finalized at location K.
[2024-02-08 16:32] LABS: Influenza A QL RT-PCR Negative (Negative); Influenza B QL RT-PCR Negative (Negative); RSV RNA, RT-PCR Negative (Negative); SARS-CoV-2 RNA PCR Negative (Negative)
== END 2024-02-08 14:38 | disposition home or self-care (01) ==
PROVIDERS: PCP Family Medicine; Visit Provider Physician Assistant
DX: R05.9 Cough, unspecified (principal); R50.9 Fever, unspecified
CPT/HCPCS: 71046; 87637

== ENCOUNTER 2024-10-24 13:13 | Outpatient (CLI) | payer MEDICARE, SELFPAY ==
--- NOTE | ~2024-10-24 | MM_ITS ---
EXAMINATION: MM screening [facility] BI w amanda HISTORY: Screening TECHNIQUE: Craniocaudal and mediolateral oblique 3-D tomosynthesis images were obtained and synthetic 2-D images were generated. CAD analysis was submitted and interpreted. COMPARISON: Comparison to multiple prior studies sequentially, with oldest reviewed study dated 11/2018. BREAST PARENCHYMAL COMPOSITION: Not dense: There are scattered areas of fibroglandular density. FINDINGS: There are benign bilateral secretory calcifications. No mammographic evidence for malignanc y in the right breast. There is a developing cluster of obscured masses centered in the lower outer q uadrant of the left breast anteriorly. IMPRESSION: 1. Developing cluster of obscured masses lower outer quadrant of the left breast anteriorly. 2. Additional mammographic views and possible breast ultrasound are recommended. BI-RADS Category 0: Incomplete: Needs additional imaging evaluation. Reviewed, dictated and finalized at location A. ER POISONER IMPRESSION: 1. Developing cluster of obscured masses lower outer quadrant of the left breas t anteriorly. 2. Additional mammographic views and possible breast ultrasound are recommended . BI-RADS Category 0: Incomplete: Needs additional imaging evaluation.
== END 2024-10-24 13:14 | disposition home or self-care (01) ==
LOC: MICIMG 13:15
PROVIDERS: PCP Family Medicine; Visit Provider Physician Assistant
DX: Z12.31 Encounter for screening mammogram for malignant neoplasm of breast (principal); R92.8 Other abnormal and inconclusive findings on diagnostic imaging of breast
CPT/HCPCS: 77063; 77067

== ENCOUNTER 2024-10-28 10:35 | Outpatient (CLI) | payer MEDICARE, SELFPAY ==
--- OUTSIDE RECORDS SUMMARY | 2024-10-28 10:44 | XMS_ITS | Encounter Summary ---
Author Organization [facility] Address 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
--- OUTSIDE RECORDS SUMMARY | 2024-10-28 10:44 | XMS_ITS | Continuity of Care Document ---
Author Organization [facility] [place] [address] [place] [address] [place] [address] Phone Care Team Providers Care Director Correctional Agency Name Role Phone [facility] Unavailable Unavail able Procedures Procedure Date Corneal Topography Advance Directives Directive Yes / No Effective Date File Name No Information Encounters Encounter Description Practice Location Reason(s) For Visit Diagnoses Date Provider Providers Copied on Encounter [facility], [address] [place] [address] [address], [place], [place], [id number], [place] tel:[phone] [facility] No Information [facility] . [address] [place], [place], [id number], [place]. tel:[phone] Referring Provider: Blu Mott OD F, [address] [facility] [address], [place], [address]. tel:[phone] Family History Family Member Type Diagnosis Age At Onset No Information Payers Payer name Insurance type Covered alliance party ID Authoriza tion(s) No Information Social History Type Description Quantity Date Captured Comments Sex Female Smoking Status No Information Chief Complaint And Reason For Visit No Information Reason For Referral Reason For Referral No Information History Of Present Illness Encounter Date Complaint History Of Prese nt Illness No Information Functional Status Date Functional Assessmen t No Information Instructions Date Instruction Additional Infor mation No Information Assessments Type Assessment Date No Information Patient Care Teams Name Effective Dates (start - stop) Status Members No Information
--- OUTSIDE RECORDS SUMMARY | 2024-10-28 10:44 | XMS_ITS | Clinical Summary ---
Author Organization [facility] Address [address] [place] [address] Care Team Providers Care Color Strainer Name Role Phone Jarocho Cruz MD Primary Care Provider [phone] Allergies Active Allergy Reactions Criticality Noted Date Comments Morphine Hallucination Low 09/03/2021 Medications losartan-hydroCH LOROthiazide (HYZAAR) 100-12.5 mg tablet 12/29/2018 Active fenofibrate micronized (ANTARA) 130 mg Capsule 01/19/2019 Active pravastatin (PRAVACHOL) 20 mg tablet 12/29/2018 Active JANUVIA 100 mg Tablet 01/19/2019 Active JARDIANCE 25 mg tablet 01/19/2019 Active Cholecalciferol, Vitamin D3, 2,000 unit Capsule Take 2,000 mg by mouth daily. 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/27/2021 Microcalcification of left breast on mammogram 0 03/08/2019 Duct ectasia, left 03/08/2019 Enlargement of submandibular gland 03/08/2019 Family History Relation Name Status Comments Brother Alive Daughter 1 Alive Daughter 2 Alive Father Mother Sister Alive Social History Tobacco Use Types Packs/Day Years Used Date Smoking Tobacco: Never Smokeless Tobacco: Never Alcohol Use Standard Drinks/Week Comments Yes 0 (1 standard drink = 0.6 oz pur e alcohol) occasional Comments No Sex and Gender Information Value Date Recorded Sex Assigned at Not on file 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 Gender Identity Not on file Sexual Orientation Not on file Last Filed Vital Signs Vital Sign Reading Time Taken Comments Blood Pressure 134/74 12/19/2021 2:39 PM CDT Pulse 95 12/19/2021 2:39 PM CDT Temperature 36.1 ??C (96.9 ??F) 12/19/2021 2:39 PM CD T Respiratory Rate - - Oxygen Saturation 96% 12/19/2021 2:39 PM CDT Inhaled Oxygen Concentration - - Weight 66.3 kg (146 lb 1.6 oz) 12/19/2021 2:39 P M CDT Height 160 cm (5' 3 ) 12/19/2021 2:39 PM CDT Body Mass Index 25.88 12/19/2021 2:39 PM CDT Plan of Treatment Health Maintenance Due Date Last Done Comments DTAP/TDAP/TD VACCINES (1 - Tdap) 1969 COLORECTAL SCREENING 1995 Colorectal Cancer Screening 1995 FIT-DNA Q 3 years 1995 FIT/FOBT Q 1 year 1995 Flex Sig/CT Colonography Q 5 years 1995 PNEUMOCOCCAL VACCINE 65+ YEA RS (1 of 1 - PCV) 02/28/2000 ZOSTER VACCINE (1 of 2) 02/28/2000 RSV VACCINE (60+ or ) (1 - Risk 60-74 years 1-dose series) 2010 OSTEOPOROSIS SCREENING 2015 BREAST CANCER SCREENING 08/30/2020 08/30/20 19, 12/16/2018, 04/13/2018 INFLUENZA VACCINE (#1) 2024 Procedures Procedure Name Priority Date/Time Associated Diagnosis Comments MAMMO BILAT DIAGNOSTIC Routine 08/30/2019 from Last 3 Months or Most Recently Relevant to Health Maintenance Results * MAMMO BILAT DIAGNOSTIC (08/30/2019) Anatomical Region Laterality Modality Breast Bilateral Other us Fior Castillo DO MAMMO ORDERABLES Final Resu lt from Last 3 Months or Most Recently Relevant to Health Maintenance Insurance Care Teams Color Strainer Relationship Specialty Start Date End Date Jarocho Cruz MD [address] [facility] [address] [place] [address] PCP - General Family Practice 01/26/19
--- OUTSIDE RECORDS SUMMARY | 2024-10-28 10:44 | XMS_ITS | Clinical Summary ---
Author Organization [facility] Address [address] [place] [address]. [place], [place] [address] [place] [address] Care Team Providers Care Peoplesoft Analyst Name Role Phone Jarocho Cruz MD Primary Care Provider [phone] Allergies Active Allergy Reactions Criticality Noted Date Comments Morphine Hallucinations 09/03/2021 Social History Tobacco Use Types Packs/Day Years Used Date Smoking Tobacco: Never Smokeless Tobacco: Never Alcohol Use Standard Drinks/Week Comments Not Currently 0 (1 standard drink = 0.6 oz pur e alcohol) Comments No Sex and Gender Information Value Date Recorded Sex Assigned at Not on file Legal Sex Female 10:38 PM PEARL TECHNICIAN Gender Identity Not on file Sexual Orientation Not on file Last Filed Vital Signs Vital Sign Reading Time Taken Comments Blood Pressure 155/79 09/03/2021 4:25 PM PEARL TECHNICIAN Pulse 98 09/03/2021 4:25 PM PEARL TECHNICIAN Temperature 36.7 ??C (98 ??F) 09/03/2021 4:25 PM PEARL TECHNICIAN Respiratory Rate 16 09/03/2021 4:25 PM PEARL TECHNICIAN Oxygen Saturation 95% 09/03/2021 4:25 PM PEARL TECHNICIAN Inhaled Oxygen Concentration - - Weight 63.5 kg (140 lb) 09/03/2021 4:25 PM PEARL TECHNICIAN Height 160 cm (5' 3 ) 09/03/2021 4:25 PM PEARL TECHNICIAN Body Mass Index 24.8 09/03/2021 4:25 PM PEARL TECHNICIAN Plan of Treatment Health Maintenance Due Date Last Done Comments Colorectal Cancer Screening Colonoscopy (10 Years) 1950 Hepatitis C 02/28/1968 DTaP, Tdap and Td Vaccines ( 1 - Tdap) 1969 Mammogram Screening 1990 Zoster Vaccines (1 of 2) 02/28/2000 Annual Medicare Wellness Visit 2015 Dexa Scan (General) 2015 Pneumococcal Vaccine: 65+ Years (1 of 1 - PCV) 2015 COVID-19 Vaccine ( - 2023-2 5 season) 2024 08/02/2021, 11/28/2020, 11/08/2020 Influenza Adult (#1) 2024 RSV Immunization or 60+ Years (1 - 1-dose 75+ series) 2025 Meningococcal B Vaccine Aged Out No l onger eligible based on patient's age to complete this topic Meningococcal Vaccine Aged Out No denise maryann eligible based on patient's age to complete this topic RSV Immunizations Under 20 Months Aged Out No longer eligible b ased on patient's age to complete this topic Insurance MED [facility] MEDICARE Care Teams Peoplesoft Analyst Relationship Specialty Start Date End Date Jarocho Cruz MD [address] [place] [address] PCP - General FAMILY PRACTICE 09/03/21
[2024-10-28 11:45] LABS: Influenza A QL RT-PCR Positive (Negative); Influenza B QL RT-PCR Negative (Negative); RSV RNA, RT-PCR Negative (Negative); SARS-CoV-2 RNA PCR Negative (Negative)
== END 2024-10-28 10:36 | disposition home or self-care (01) ==
LOC: ANHLAB 10:37
PROVIDERS: PCP Family Medicine; Visit Provider Physician Assistant
DX: Z20.828 Contact with and (suspected) exposure to other viral communicable diseases (principal)
CPT/HCPCS: 87637

== ENCOUNTER 2024-11-04 09:15 | Outpatient (CLI) | payer MEDICARE, SELFPAY ==
--- NOTE | ~2024-11-04 | MMUS_ITS ---
EXAMINATION: MM diagnostic fausto LT w amanda, US breast LT limited HISTORY: Possible left breast masses TECHNIQUE: Additional 3-D tomosynthesis images of the left breast were performed and synthetic 2-D im ages were generated. CAD analysis was submitted and interpreted. High resolution limited left breast ultrasound was performed. COMPARISON: 10/24/2024, 10/22/2023, 08/29/2022, 05/03/2021 BREAST PARENCHYMAL COMPOSITION:Not Dense. There are scattered areas of fibroglandular density. FINDINGS: MAMMOGRAPHIC FINDINGS: There are probable small persistent nodule opacities at the upper, outer left breast, essentially sta ble from prior exams. ULTRASOUND: At the 2:00 position left breast, 10 cm from the nipple, there is a probable 5 mm reniform lymph node with fatty hilum. At the 2:00 position left breast, 5 cm from the nipple, there is a 2 mm hypoechoic circumscribed mass. At the 2:00 position left breast, 3 cm from the nipple, there is a 4 mm simple c yst. IMPRESSION: Benign findings, as above. No evidence for malignancy. BI-RADS Category 2: Benign finding(s). Reviewed, dictated and finalized at location M. COM SPECIALIST IMPRESSION: Benign findings, as above. No evidence for malignancy. BI-RADS Category 2: Benign finding(s).
== END 2024-11-04 09:16 | disposition home or self-care (01) ==
LOC: MICIMG 09:16
PROVIDERS: PCP Family Medicine; Visit Provider Physician Assistant
DX: R92.8 Other abnormal and inconclusive findings on diagnostic imaging of breast (principal)
CPT/HCPCS: 76642; 77061; 77065; G0279